=== PATIENT | female | born 1960 | race African-American/Black ===

== ENCOUNTER 2016-12-11 19:25 | Emergency (ER) | payer OTHER ==
[~2016-12-11] VITALS: Ht 170.2 cm; Wt 89.0 kg
[~2016-12-11 19:25] MED LIST: CELEXA; METHADONE; VICODIN
[2016-12-11] MEDS ORDERED: SODIUM CHLORIDE 0.9% 1,000 ML IV ONE (23:51)
[2016-12-11] MEDS ORDERED: KETOROLAC 30MG/ML VIAL IV STA (23:51)
[2016-12-11] MEDS ORDERED: ONDANSETRON HCL 4MG/2ML VIAL IV STA (23:51)
[2016-12-12] MEDS ORDERED: FAMOTIDINE 20MG/2ML VIAL IV ONE
[2016-12-12 00:33] LABS: BASOPHILS % 1.6 % (0.0-2.0); EOSINOPHILS % 2.7 % (0.0-5.0); HEMATOCRIT. 42.4 % (36.0-48.0); HEMOGLOBIN. 14.1 g/dL (12.0-16.0); LYMPHOCYTES % 47.6 % (20.0-50.0); MEAN CORPUSCULAR HEMOGLOBIN 28.7 pg (28.0-32.0); MEAN CORPUSCULAR VOLUME 86.6 fL (81.0-99.0); MEAN PLATELET VOLUME 8.3 fl (7.4-10.4); MONOCYTES % 3.8 % (2.0-8.0); NEUTROPHILS % 44.3 % (40.0-76.0); PLATELET 309 x1000/uL (130-400); RED BLOOD CELL COUNT 4.89 mill/uL (4.2-5.4)
[2016-12-12 00:36] LABS: CHLORIDE 106 mEq/L (98-107)
[2016-12-12 00:45] LABS: CARBON DIOXIDE 29 mEq/L (21-32)
[2016-12-12 00:58] LABS: CLARITY URINE CLEAR (CLEAR); COLOR URINE DARK YELLOW (YELLOW); GLUCOSE URINE NEGATIVE (NEGATIVE); KETONES URINE NEGATIVE (NEGATIVE); LEUKOCYTE ESTERASE URINE TRACE (NEGATIVE); NITRITE URINE NEGATIVE (NEGATIVE); OCCULT BLOOD URINE NEGATIVE (NEGATIVE); PH URINE 5.5 (4.5-8.0); PROTEIN URINE NEGATIVE (NEGATIVE)
[2016-12-12] MEDS ORDERED: MORPHINE SULFATE 4 MG/ML CPJ (NOT FOR IM USE) IV ONE (01:15)
[2016-12-12] MEDS ORDERED: ONDANSETRON HCL 4MG/2ML VIAL IV ONE (01:15)
[2016-12-12 04:00] VITALS: BP 124/81
== END 2016-12-12 04:02 | disposition home or self-care (01) ==
LOC: ER 19:25
DX: R10.9 Unspecified abdominal pain (principal); R19.7 Diarrhea, unspecified; R11.2 Nausea with vomiting, unspecified; Z90.710 Acquired absence of both cervix and uterus; Z90.89 Acquired absence of other organs
CPT/HCPCS: 36415; 74176; 80053; 81001; 83690; 85025; 96361; 96374; 96375; 96376; 99285; J1885; J2270; J2405; J3490; J7030

== ENCOUNTER 2017-08-23 13:40 | Emergency (ER) | payer OTHER ==
[~2017-08-23] VITALS: Ht 170.2 cm; Wt 89.0 kg
[2017-08-23 14:42] LABS: CLARITY URINE CLEAR (CLEAR); COLOR URINE YELLOW (YELLOW); KETONES URINE NEGATIVE (NEGATIVE); LEUKOCYTE ESTERASE URINE NEGATIVE (NEGATIVE); NITRITE URINE NEGATIVE (NEGATIVE); OCCULT BLOOD URINE NEGATIVE (NEGATIVE); PROTEIN URINE NEGATIVE (NEGATIVE); SPECIFIC GRAVITY URINE 1.017 (1.005-1.030); UROBILINOGEN URINE 0.2 E.U./dL (0.2-1.0)
[2017-08-23 15:02] LABS: BASOPHILS % 0.6 % (0.0-2.0); EOSINOPHILS % 3.9 % (0.0-5.0); HEMATOCRIT. 39.4 % (36.0-48.0); HEMOGLOBIN. 13.1 g/dL (12.0-16.0); LYMPHOCYTES % 33.6 % (20.0-50.0); MEAN CORPUSCULAR HEMOGLOBIN 29.1 pg (28.0-32.0); MEAN CORPUSCULAR VOLUME 87.4 fL (81.0-99.0); MEAN PLATELET VOLUME 8.3 fl (7.4-10.4); MONOCYTES % 3.6 % (2.0-8.0); NEUTROPHILS % 58.3 % (40.0-76.0); PLATELET 261 x1000/uL (130-400); RED BLOOD CELL COUNT 4.51 mill/uL (4.2-5.4); RED CELL DISTRIBUTION WIDTH 15.3 % (11.6-14.6)
[2017-08-23 15:08] LABS: CHLORIDE 111 mEq/L (98-107)
[2017-08-23 15:13] LABS: PROTHROMBIN TIME 10.7 sec (9.4-11.6)
[2017-08-23] MEDS ORDERED: KETOROLAC 30MG/ML VIAL IV ONE (17:00)
[2017-08-23] MEDS ORDERED: KETOROLAC 60MG/2ML VIAL IM ONE (17:30)
[2017-08-23] MEDS ORDERED: MORPHINE SULFATE 10 MG/ML CPJ IM ONE (19:45)
[2017-08-23 21:10] VITALS: BP 134/68
== END 2017-08-23 21:14 | disposition home or self-care (01) ==
LOC: ER 13:50
DX: R10.31 Right lower quadrant pain (principal); R11.0 Nausea; K92.1 Melena; Z90.49 Acquired absence of other specified parts of digestive tract; Z90.710 Acquired absence of both cervix and uterus; Z98.890 Other specified postprocedural states
CPT/HCPCS: 36415; 74176; 80053; 81003; 83690; 85025; 85610; 96372; 99285; J1885; J2270